=== PATIENT | female | born 1960 | race Caucasian/White ===

== ENCOUNTER 2019-09-05 14:33 | Emergency (ER) | payer OTHER ==
[~2019-09-05] VITALS: Ht 160 cm; Wt 65.5 kg
[2019-09-05 14:42] VITALS: BP 122/68
[2019-09-05] MEDS ORDERED: acetaminophen 325mg tablet PO ONE (15:40)
[2019-09-05] MEDS ORDERED: DOXY100C2 PO (15:56)
== END 2019-09-05 16:10 | disposition home or self-care (01) ==
LOC: ER 14:34
DX: J02.9 Acute pharyngitis, unspecified (principal); R05 Cough; R09.89 Other specified symptoms and signs involving the circulatory and respiratory systems; G89.29 Other chronic pain; E11.9 Type 2 diabetes mellitus without complications; R51 Headache; R09.3 Abnormal sputum; Z88.8 Allergy status to other drugs, medicaments and biological substances; Z79.899 Other long term (current) drug therapy
CPT/HCPCS: 71045; 99283

== ENCOUNTER 2020-12-11 14:39 | Emergency (ER) | payer OTHER ==
[~2020-12-11] VITALS: Ht 162.6 cm; Wt 73.6 kg
[2020-12-11 14:48] VITALS: BP 191/104
[2020-12-11] MEDS ORDERED: orphenadrine citrate 60mg/2ml inj. IM ONE (16:10)
[2020-12-11] MEDS ORDERED: diazepam 5mg tablet PO ONE (16:10)
[2020-12-11] MEDS ORDERED: ACET-1025 PO (16:20)
[2020-12-11] MEDS ORDERED: DIAZ5TAB22 PO (16:20)
== END 2020-12-11 16:31 | disposition home or self-care (01) ==
LOC: ER 14:40
DX: M54.12 Radiculopathy, cervical region (principal); M54.2 Cervicalgia; E11.9 Type 2 diabetes mellitus without complications; M19.90 Unspecified osteoarthritis, unspecified site; G89.29 Other chronic pain; Z88.8 Allergy status to other drugs, medicaments and biological substances; Z79.899 Other long term (current) drug therapy
CPT/HCPCS: 96372; 99283; J2360